=== PATIENT | male | born 1960 | race Caucasian/White ===

== ENCOUNTER 2019-11-04 11:04 | Emergency (ER) | payer OTHER ==
[~2019-11-04] VITALS: Ht 170.2 cm; Wt 78.0 kg
[2019-11-04 11:12] VITALS: BP 139/74
--- NOTE | 2019-11-04 11:51 | NUR ---
BIB SELF C/O ABCESS ON RIGHT SIDE OF NECK, NOTICED THIS MORNING IN THE SHOWER, ATTEMPTED TO POP IT AND ABCESS BEGAN BLEEDING. CAUSING HEADACHE PAIN 8/10 ON RIGHT SIDE OF HEAD ONLY SLIGHT DIZZINESS REPORTED. NO CHANGES TO VISION, LOC, NO N/V/D REPORTED LAST TETANUS HAS BEEN OVER 4 YEARS
[2019-11-04] MEDS ORDERED: CEPHALEXIN 500 MG CAP PO ONE (12:20)
[2019-11-04 12:31] VITALS: BP 133/82
--- NOTE | 2019-11-04 12:32 | NUR ---
Patient discharged with v/s stable. Written and verbal after care instructions given and explained. Patient alert, oriented and verbalized understanding of instructions. Ambulatory with steady gait. All questions addressed prior to discharge. ID band removed. Patient advised to follow up with PMD. Rx of KEFLEX 500MG given. Patient educated on indication of medication including possible reaction and side effects. Opportunity to ask questions provided and answered.
== END 2019-11-04 13:00 | disposition home or self-care (01) ==
LOC: MED 11:04
DX: L03.221 Cellulitis of neck (principal); M54.2 Cervicalgia; Z95.1 Presence of aortocoronary bypass graft
CPT/HCPCS: 99284

== ENCOUNTER 2020-08-02 01:54 | Emergency (ER) | payer OTHER ==
[~2020-08-02] VITALS: Ht 170.2 cm; Wt 74.8 kg
[2020-08-02 01:56] VITALS: BP 143/87
--- NOTE | 2020-08-02 02:01 | NUR ---
PT AMBULATED TO BED 06 WITH STEADY GAIT.
--- NOTE | 2020-08-02 02:10 | NUR ---
ERMD AT BEDSIDE.
--- NOTE | 2020-08-02 02:13 | NUR ---
PT 60 Y/O MALE BIB SELF FOR C/O L HAND PAIN S/P POSSIBLE BUG BITE X 4 DAYS AGO. PT NOTED WITH REDNESS AND SWELLING IN 4TH AND 5TH DIGITS IN L HAND. NO DRAINAGE NOTED FROM SITE. PT STATES PAIN 6/10 THROBBING, AND HAS DIFFCULTY MOVING FINGERS. PT CMS INTAT. CAP REFIL <3. MEDHX: TRIPPLE BYPASS 2013 ALLERGIES: NKA
[2020-08-02] MEDS ORDERED: cephALEXin 500 MG CAP PO ONE (02:15)
[2020-08-02 02:40] VITALS: BP 143/87
--- NOTE | 2020-08-02 02:40 | NUR ---
Patient discharged with v/s stable. Written and verbal after care instructions given and explained. Patient alert, oriented and verbalized understanding of instructions. Ambulatory with steady gait. All questions addressed prior to discharge. ID band removed. Patient advised to follow up with PMD. Rx of NAPROSYN, KEFLEX given. Patient educated on indication of medication including possible reaction and side effects. Opportunity to ask questions provided and answered.
== END 2020-08-02 02:40 | disposition home or self-care (01) ==
LOC: MED 01:54
DX: L03.114 Cellulitis of left upper limb (principal); Z95.1 Presence of aortocoronary bypass graft
CPT/HCPCS: 99283

== ENCOUNTER 2023-04-12 01:10 | Emergency (ER) | payer OTHER ==
[~2023-04-12] VITALS: Ht 167.6 cm; Wt 73.5 kg
[2023-04-12 01:34] VITALS: BP 140/90
--- NOTE | 2023-04-12 01:40 | NUR ---
PT TO BED #6
--- NOTE | 2023-04-12 02:16 | NUR ---
62 Y/O M PRESENTS WITH URINARY RETENTION XYESTERDAY AM WITH 9/10 PAIN. PT STATED THIS HAS HAPPENED BEFORE, AND HE HAD A BIOPSY DONE XYESTERDAY OF PROSTATE. PT DENIES ANY NVD, HEADACHES. RESPIRATIONS EVEN AND UNLABORED. PT STATED HE HAS HAD A DALY INSERTION BEFORE. PT STATES HES BEEN FEELING CONSTIPATED. PMH- TRIPLE BYPASS 2012 NKA
--- NOTE | 2023-04-12 02:26 | NUR ---
PT AMBULATORY TO RESTROOM WITHOUT ASSISTANCE
--- NOTE | 2023-04-12 02:26 | NUR ---
UA COLLECTED AND SENT TO LAB
[2023-04-12 02:29] LABS: APPEARANCE,URINE CLEAR (CLEAR); BILIRUBIN,URINE NEGATIVE (NEGATIVE); BLOOD, URINE 3+ (NEGATIVE); COLOR,URINE YELLOW (YELLOW); LEUKOCYTE ESTERASE ,URINE NEGATIVE (NEGATIVE); NITRITE, URINE NEGATIVE (NEGATIVE); PH,URINE 6.5 (5.0-9.0); UGLUCOSE TRACE (NEGATIVE)
[2023-04-12 02:39] LABS: RBC,URINE 50-80 /HPF (0-5)
[2023-04-12 02:43] LABS: URIC ACID CRYSTALS,URINE 0-10 /HPF (None Seen)
--- NOTE | 2023-04-12 03:11 | NUR ---
Patient discharged with v/s stable. Written and verbal after care instructions given and explained. Patient verbalized understanding. Ambulatory with steady gait. All questions addressed prior to discharge. Advised to follow up with PMD. PT SENT HOME WITH URINARY CATH PER DOCTORS ORDERS. DR. JULIAN'S ORDERS REINFORCED
== END 2023-04-12 03:11 | disposition home or self-care (01) ==
LOC: MED 01:10
DX: R33.9 Retention of urine, unspecified (principal); N40.0 Benign prostatic hyperplasia without lower urinary tract symptoms; Z90.49 Acquired absence of other specified parts of digestive tract; Z98.890 Other specified postprocedural states
CPT/HCPCS: 51702; 81001; 87086; 99284

== ENCOUNTER 2023-04-29 19:57 | Emergency (ER) | payer OTHER ==
[~2023-04-29] VITALS: Ht 167.6 cm; Wt 73.5 kg
[2023-04-29 20:10] VITALS: BP 130/90
--- NOTE | 2023-04-29 20:13 | NUR ---
TO LOBBY A/W BED AMBULATORY
--- NOTE | 2023-04-29 20:42 | NUR ---
PT AMBULATED TO BED#7
--- NOTE | 2023-04-29 21:15 | NUR ---
F/C CHANGED AND ATTACHED TO LEG BAG
[2023-04-29 22:12] LABS: BILIRUBIN,URINE 2+ (NEGATIVE); BLOOD, URINE 3+ (NEGATIVE); LEUKOCYTE ESTERASE ,URINE 3+ (NEGATIVE); NITRITE, URINE POSITIVE (NEGATIVE); UGLUCOSE 2+ (NEGATIVE)
[2023-04-29] MEDS ORDERED: PYR100 PO (22:18)
[2023-04-29] MEDS ORDERED: CEPH-588 PO (22:18)
[2023-04-29 22:21] LABS: RBC,URINE TOO NUMEROUS TO COUN /HPF (0-5)
[2023-04-29 22:26] LABS: APPEARANCE,URINE SLIGHTLY BLOODY (CLEAR); COLOR,URINE RED (YELLOW)
[2023-04-29 22:30] VITALS: BP 130/90
--- NOTE | 2023-04-29 22:30 | NUR ---
Patient discharged with v/s stable. Written and verbal after care instructions given and explained. Patient alert, oriented and verbalized understanding of instructions. Ambulatory with steady gait. All questions addressed prior to discharge. ID band removed. Patient advised to follow up with PMD. Rx of KEFLEX, PYRIDIUM given. Patient educated on indication of medication including possible reaction and side effects. Opportunity to ask questions provided and answered.
== END 2023-04-29 22:30 | disposition home or self-care (01) ==
LOC: MED 19:57
DX: N39.0 Urinary tract infection, site not specified (principal); T83.091A Other mechanical complication of indwelling urethral catheter, initial encounter; Z79.899 Other long term (current) drug therapy
CPT/HCPCS: 51702; 81001; 87086; 99284